=== PATIENT | male | born 1950 | race Caucasian/White ===

== ENCOUNTER 2016-09-12 07:14 | Observation (INO) | payer OTHER ==
[~2016-09-12] VITALS: Ht 188 cm; Wt 98.0 kg
[~2016-09-12 07:14] MED LIST: ALUMSUS2 PO; ASCO250C17 PO; BISM262S7 PO; LISI-461 PO; MULT-506 PO; PARO1TAB27 PO
[2016-09-12 07:22] VITALS: BP 150/67; PULSE 35; TEMP 36.5; O2SAT 97; BMI 28.0
[2016-09-12] MEDS ORDERED: CYAN500S5 SL (07:46)
[2016-09-12] MEDS ORDERED: ASPI81TA28 PO (07:46)
[2016-09-12] MEDS ORDERED: OMEG10007 PO (07:46)
[2016-09-12] MEDS ORDERED: METO25TA3 PO (07:46)
[2016-09-12] MEDS ORDERED: DICY20TA35 PO (07:46)
[2016-09-12] MEDS ORDERED: PRLSR20 PO (07:46)
[2016-09-12] MEDS ORDERED: NiCARDipine HCL INJ 2.5 MG/ML 10 ML AMP ONE (07:54)
[2016-09-12] MEDS ORDERED: HEPARIN SOD (PORCINE) 1000 UNIT/ML 10 ML VIAL ONE (07:54)
[2016-09-12] MEDS ORDERED: MIDAZOLAM HCL 1 MG/ML 2ML VIAL ONE (07:55)
[2016-09-12] MEDS ORDERED: NITROGLYCERIN/D5W 100MCG/ML 20ML SYR ONE (07:55)
[2016-09-12] MEDS ORDERED: FENTANYL CITRATE INJ 50 MCG/1 ML 2 ML VIAL ONE (07:55)
[2016-09-12] MEDS ORDERED: SODIUM CHLORIDE 0.9% 1000ML 1,000 ML IV SCH ×2 (09:34)
[2016-09-12] MEDS ORDERED: SODIUM CHLORIDE 0.9% 1000ML 250 ML IV PRN (09:34)
--- NOTE | 2016-09-12 09:34 | History & Physical Bridge Note ---
H&P Re-Evaluation Bridge Note: I have examined the patient, reviewed the History & Physical and in the interval since the performance of the History & Physical I have noted the following changes of clinical significance: No changes noted
--- NOTE | 2016-09-12 09:43 | Cardiac Catheterization ---
Procedure Note Procedure Date Sep 12, 2016. Pre-Procedure Diagnosis Angina, Positive Stress Test AUC Score 7 Post-Procedure Diagnosis Severe CAD, Normal LV Systolic Function, Normal Intracardiac Pressures Procedure(s) Performed Coronary Angiography, Left Heart Cath, LV Angiography Chief Power Dispatcher Dr. Orellana Army Manager(s) None Estimated Blood Loss None Medication(s) Lidocaine 1% Summary of Findings Severe CAD including left main trunk. Hemodynamics Rest Ao: 114/65 Final Ao: 153/75 LV: 151/16 Recommendations CABG Specimens None Radiation Exposure (mGy) 1635 Contrast (mls) 131 Fluids (cc crystalloids) 60 Procedural Complication(s) None Disposition Production Statistical Clerk Holding/Recovery ACC Data Cardiac Status Clinical evaluation leading to the procedure CAD Presntation: Stable angina, Positive Stress Test Anginal Classification: CCS II Heart Failure: No Cardiogenic Shock w/in 24Hrs: No Cardiac Arrest w/in 24Hrs: No Imaging studies past 6 months: Yes Stress studies past 6 months: Yes Stress Echocardiogram: Yes - Positive Coronary Anatomy Dominant: Right Left Main (% Stenosis): Distal (90) LAD (% Stenosis): Ostial (90) RCA (% Stenosis): Distal (90) Ramus (% Stenosis): Proximal (90) Left Ventricular Angiography EF (%): 60 Mitral Regurgitation: None Diagnostic Physician's Name: Claude Orellana, DO Status: Elective Closure Device Percutaneous Entry Location: Radial Closure Device: Radial Band Recommendations: CABG
[2016-09-12] MEDS ORDERED: ONDANSETRON INJ 2 MG/ML 2 ML VIAL IV PRN ×2 (09:45→16:45)
[2016-09-12] MEDS ORDERED: ACETAMINOPHEN 325 MG TAB PO PRN ×2 (09:45→16:45)
[2016-09-12] MEDS ORDERED: DC ALL ANTICOAGULANTS ONE (09:45)
[2016-09-12] MEDS ORDERED: ATROPINE SULFATE 0.1 MG/ML 5ML SYR IV PRN (09:45)
--- NOTE | 2016-09-12 09:46 | Discharge Instructions ---
Discharge Instructions Procedure Procedure Date: Sep 12, 2016. Reason for Visit: Abnormal Stress Test. Discharge Discharge Date: Sep 12, 2016. Discharge Diagnosis: CAD Last Recorded Wt (Kilograms): 98 Anesthesia Post Anesthesia Instructions: If you have had General Anesthesia or IV Sedation: * Do not drive today. * Resume driving when surgeon permits. * Do not make important decisions or sign legal documents today. * Call surgeon for: 1. Temperature elevations greater than 101 degrees F. 2. Uncontrollable pain. 3. Excessive bleeding. 4. Persistent nausea and vomiting. 5. Medication intolerance (nausea, vomiting or rash). * For nausea and vomiting use only clear liquids such as: tea, soda, bouillon until nausea subsides, then gradually increase diet as tolerated. * If you have any concerns or questions, call your surgeon's office. If physician is unavailable and it is an emergency, call 911 or go to the nearest emergency room. Instructions Activity Recommendations: limitations Recommended Home Diet: resume previous diet Allergies: Coded Allergies: Ciprofloxacin (Verified Allergy, Severe, RASH, 02/19/16) Sulfa Antibiotics (Verified Allergy, Unknown, unk, 02/19/16) Provider Instructions ACTIVITY RECOMMENDATIONS: Excess manipulation of the wrist should be avoided for the next 24-48 hours. * No lifting over 2 pounds (approximately a 1/2 gallon of milk) with the utilized arm for 24 hours. * No strenuous activity such as bowling or tennis for 3 days. * Keep the site of the procedure covered with a bandage for 24 hours. *You may shower the day after the procedure. Do not take a tub bath or submerge the puncture site in water for the next 3 days. *Do not operate any motorized equipment for 3 days. SPECIAL CARE INSTRUCTIONS: The site may be slightly bruised and sore following your procedure. Should any of the following occur, contact the Dr. who performed your procedure. 1. Redness/inflammation, swelling, chills, or fever, or colored drainage at procedure site within 3-7 days after your procedure. 2. Coldness, discoloration, ongoing numbness, severe pain, or swelling. Expect mild tingling of hand and tenderness at the puncture site for up to three days. If this persists beyond three days, or other symptoms develop, notify the Dr. who performed your procedure. BLEEDING: If the procedure site on your wrist begins to bleed, do not panic 1. Place 1 or 2 fingers firmly just slightly above the insertion site to stop the bleeding. You may be able to feel your pulse as you hold pressure. 2. Lift your finger after 5 minutes to see if the bleeding has stopped. 3. Once the bleeding has stopped, gently wipe the wrist area clean with a bandage. * If the bleeding from your wrist does not stop after 10 minutes, or if there is a large amount of bleeding or spurting, call 911 (do not drive yourself to the hospital). SKIN IRRITATION: * You may experience some redness and/or swelling in the area where radiation was administered. If any skin irritation occurs, please contact your family physician. FOLLOW UP VISIT: Keep any scheduled doctor appointments. Follow Up Karen Valentino Recommendations: Call your doctor if: * Temperature above 101 degrees * Pain not relieved by pain medicine ordered * There is increased drainage or redness from any incision * You have any unanswered questions or concerns. Your Doctors Instructions noted above were prepared by provider Claude Orellana. Patient Signature Section: Patient Instructions Signature Page Raj Cintron Patient (or Guardian) Signature/Date: I have read and understand the instructions given to me by my caregivers. Caregiver/RN/Doctor Signature/Date: The above-named patient and/or guardian has received patient instructions on this date. + Original Patient Signature Page (only) stays with chart. Please make copy for patient.
[2016-09-12 16:30] VITALS: BP 136/72; PULSE 41; TEMP 36.4; O2SAT 95
[2016-09-12] MEDS ORDERED: ZOLPIDEM TARTRATE 5 MG TAB PO PRN ×2 (16:45)
[2016-09-12] MEDS ORDERED: NITROGLYCERIN 0.4 MG SL PER TAB CHARGE SL PRN (16:45)
[2016-09-12] MEDS ORDERED: POLYETHYLENE (MIRALAX) 17 GM PACK PO PRN (16:45)
[2016-09-12] MEDS ORDERED: MAGNESIUM HYDROXIDE SUSP 30 ML UDC PO PRN (16:45)
[2016-09-12] MEDS ORDERED: ALUMINUM/MAGNESIUM/SIMETH (MAALOX MAX) 30 ML UDC PO PRN (16:45)
[2016-09-12] MEDS ORDERED: DICYCLOMINE HCL 20 MG TAB PO PRN (17:00)
[2016-09-12 17:10] VITALS: BP 136/72; PULSE 41; TEMP 36.4; Ht 188 cm; Wt 98.0 kg
[2016-09-12 17:25] VITALS: O2SAT 95
[2016-09-12 17:42] VITALS: BP 136/72; PULSE 41; TEMP 36.4; O2SAT 95
[2016-09-12] MEDS ORDERED: IV FLUIDS COMPLETED PRN (18:45)
[2016-09-12 20:01] VITALS: BP 116/70; PULSE 45; TEMP 36.9; O2SAT 95
[2016-09-12] MEDS ORDERED: LISINOPRIL 10 MG TAB PO SCH (21:00)
[2016-09-13] MEDS ORDERED: LISINOPRIL 10 MG TAB PO SCH (09:00)
[2016-09-13] MEDS ORDERED: PAROXETINE 20 MG TAB PO SCH ×2 (09:00)
[2016-09-13] MEDS ORDERED: PANTOprazole SOD 40 MG TAB PO PRN (09:00)
[2016-09-13] MEDS ORDERED: ASPIRIN 81 MG ECTAB PO SCH ×2 (09:00)
== END 2016-09-12 21:20 | disposition short-term general hospital (02) ==
LOC: C.CATH 07:14 → C.2T 16:07 → ENRESERV 16:11
PROVIDERS: ADMIT Internal Medicine Interventional Cardiology; ATTEND Internal Medicine Interventional Cardiology
DX: I25.119 Atherosclerotic heart disease of native coronary artery with unspecified angina pectoris (principal)

== ENCOUNTER 2016-10-19 20:33 | Emergency (ER) | payer OTHER ==
[~2016-10-19] VITALS: Ht 185.4 cm; Wt 91.5 kg
[~2016-10-19 20:33] MED LIST changes: -ALUMSUS2 PO; +ASPI81TA28 PO; -BISM262S7 PO; +CYAN500S5 SL; +DICY20TA35 PO; +METO25TA3 PO; +OMEG10007 PO; +PRLSR20 PO
[2016-10-19 20:38] VITALS: TEMP 36.7; Ht 185.4 cm; Wt 91.5 kg
[2016-10-19] MEDS ORDERED: LSN25 PO (21:28)
[2016-10-19] MEDS ORDERED: CLOP1TAB15 PO (21:29)
[2016-10-19] MEDS ORDERED: ATOR-26 PO (21:29)
[2016-10-19] MEDS ORDERED: TRAM-10 PO (21:29)
[2016-10-19] MEDS ORDERED: SPIR25TA PO (21:29)
[2016-10-19] MEDS ORDERED: FRS/40 PO (21:29)
[2016-10-19 22:07] LABS: BASO % 1.1 %; BASO ABS # 0.08 K/uL (0-0.2); COMPLETE YES; EOS % 5.2 %; HEMATOCRIT 40.4 % (42-52); IG% 0.3 %; LYMPH % 12.2 %; LYMPH ABS # 0.92 K/uL (1.2-3.4); MEAN CELL VOLUME 94.2 fL (80-100); MEAN CORPUSCULAR HGB CONC 32.9 g/dl (32-36); MEAN PLATELET VOLUME 8.8 fL (7.4-10.4); MONO % 8.1 %; NEUT % 73.1 %; PLATELET COUNT 222 K/uL (130-400); RED BLOOD COUNT 4.29 M/uL (4.7-6.1); WHITE BLOOD COUNT 7.57 K/uL (4.8-10.8)
[2016-10-19 22:17] LABS: INR 1.1 (0.9-1.1); PROTHROMBIN TIME (PATIENT) 11.3 SECONDS (9.0-12.0)
[2016-10-19 22:23] LABS: BUN/CREATININE RATIO 19.6 (10-20); C-REACTIVE PROTEIN 0.5 mg/dl (0-0.29); CALCIUM 9.1 mg/dl (8.5-10.1); CREATININE 1.3 mg/dl (0.60-1.40)
[2016-10-19 23:30] VITALS: BP 119/80; PULSE 80; O2SAT 96
--- NOTE | 2016-10-20 | EMERGENCY ROOM VISIT NOTE ---
History First contact with patient: 21:31 Chief Complaint: LEG PAIN,LEG INJURY Stated Complaint: POST CARDIAC BYPASS SURG-ANKLE SWELLING, RASH History of Present Illness The patient is a 66 year old male who presents to the Emergency Room with complaints of a rash to both of his legs. The patient states that he noticed the rash today while changing his clothes. He states it is not itchy or painful. The patient states that he had a 4 vessel CABG 5 weeks ago at [facility] in [place]. The patient stayed in the hospital there for 6 days, then was sent to [facility] for one week. He states that since being discharged a few weeks ago, he has been doing well. He reports some fatigue, but was told this would be normal. He does feel he is slightly more fatigued than normal today. The patient denies any new environmental exposures. He does state that he was started on lisinopril, but he has taken this in the past without issues. The patient denies any chest pain, shortness of breath, significant leg swelling, or fevers. Review of Systems A complete 10 point review of systems was reviewed with the patient with pertinent positives and negatives as per history of present illness. All else were negative. Past Medical/Surgical History Medical Problems: (1) Anxiety (2) CAD (coronary artery disease) (3) Depression (4) HTN (hypertension) Family History FH: COPD (chronic obstructive pulmonary disease) Hypertension Social History Smoking Status: Former Smoker Drug Use: none Marital Status: single Housing Status: lives alone Occupation Status: employed Current/Historical Medications Scheduled Aspirin (Aspirin Ec), 81 MG PO DAILY Atorvastatin (Lipitor), 80 MG PO QPM Clopidogrel (Plavix), 75 MG PO QAM Furosemide (Lasix), 40 MG PO QAM Lisinopril (Lisinopril), 2.5 MG PO DAILY Paroxetine (Paxil), 20 MG PO DAILY Spironolactone (Aldactone), 12.5 MG PO DAILY Scheduled PRN Dicyclomine Hcl (Bentyl), 1 TAB PO QID PRN for IBS Tramadol (Ultram), 50 MG PO Q8H PRN for Pain Physical Exam Vital Signs Date Time Temp Pulse Resp B/P (MAP) Pulse Ox O2 Delivery O2 Flow Rate FiO2 10/19/16 23:30 80 18 119/80 96 Room Air 10/19/16 20:38 36.7 87 18 117/87 97 Room Air Physical Exam VITALS: Vitals are noted on the nurse's note and reviewed by myself. Vital signs stable. GENERAL: This is a 66-year-old male, in no acute distress, nondiaphoretic, well- developed well-nourished. SKIN: There are multiple scattered nonblanching erythematous lesions over bilateral lower legs extending up past the knees. These are consistent with petechiae. There are well-healing incisions to bilateral medial lower legs. There is a well-healing mid sternal incision. HEENT: Normocephalic. PERRLA. EOMI. Mucous membranes moist. No petechiae of the posterior pharynx. HEART: Regular rate and rhythm without murmurs gallops or rubs. LUNGS: Clear to auscultation bilaterally without wheezes, rales or rhonchi. EXTREMITIES: No leg swelling. NEURO: Patient was alert and oriented to person place and time. Medical Decision & Procedures Laboratory Results 10/19/16 21:55 Red Blood Count 4.29, Mean Corpuscular Volume 94.2, Mean Corpuscular Hemoglobin 31.0, Mean Corpuscular Hemoglobin Concent 32.9, Mean Platelet Volume 8.8, Neutrophils (%) (Auto) 73.1, Lymphocytes (%) (Auto) 12.2, Monocytes (%) (Auto) 8.1, Eosinophils (%) (Auto) 5.2, Basophils (%) (Auto) 1.1, Neutrophils # (Auto) 5.55, Lymphocytes # (Auto) 0.92, Monocytes # (Auto) 0.61, Eosinophils # (Auto) 0.39, Basophils # (Auto) 0.08 10/19/16 21:55 Test 10/19/16 21:55 White Blood Count 7.57 K/uL (4.8-10.8) Red Blood Count 4.29 M/uL (4.7-6.1) Hemoglobin 13.3 g/dL (14.0-18.0) Hematocrit 40.4 % (42-52) Mean Corpuscular Volume 94.2 fL (80-100) Mean Corpuscular Hemoglobin 31.0 pg (25-34) Mean Corpuscular Hemoglobin Concent 32.9 g/dl (32-36) Platelet Count 222 K/uL (130-400) Mean Platelet Volume 8.8 fL (7.4-10.4) Neutrophils (%) (Auto) 73.1 % Lymphocytes (%) (Auto) 12.2 % Monocytes (%) (Auto) 8.1 % Eosinophils (%) (Auto) 5.2 % Basophils (%) (Auto) 1.1 % Neutrophils # (Auto) 5.55 K/uL (1.4-6.5) Lymphocytes # (Auto) 0.92 K/uL (1.2-3.4) Monocytes # (Auto) 0.61 K/uL (0.11-0.59) Eosinophils # (Auto) 0.39 K/uL (0-0.5) Basophils # (Auto) 0.08 K/uL (0-0.2) RDW Standard Deviation 48.3 fL (36.4-46.3) RDW Coefficient of Variation 14.1 % (11.5-14.5) Immature Granulocyte % (Auto) 0.3 % Immature Granulocyte # (Auto) 0.02 K/uL (0.00-0.02) Erythrocyte Sedimentation Rate 8 mm/hr (0-14) Prothrombin Time 11.3 SECONDS (9.0-12.0) Prothromb Time International Ratio 1.1 (0.9-1.1) Activated Partial Thromboplast Time 27.0 SECONDS (21.0-31.0) Partial Thromboplastin Ratio 1.0 Anion Gap 3.0 mmol/L (3-11) Est Creatinine Clear Calc Drug Dose 63.2 ml/min Estimated GFR () 65.9 Estimated GFR (Non- 56.9 BUN/Creatinine Ratio 19.6 (10-20) Calcium Level 9.1 mg/dl (8.5-10.1) Total Bilirubin 0.9 mg/dl (0.2-1) Direct Bilirubin 0.2 mg/dl (0-0.2) Aspartate Amino Transf (AST/SGOT) 20 U/L (15-37) Alanine Aminotransferase (ALT/SGPT) 38 U/L (12-78) Alkaline Phosphatase 94 U/L (45-117) C-Reactive Protein 0.50 mg/dl (0-0.29) Total Protein 7.1 gm/dl (6.4-8.2) Albumin 3.9 gm/dl (3.4-5.0) Medical Decision Differential diagnosis includes thrombocytopenia, medication reaction, contact dermatitis, ITP, HSP, Dawn-Vaughn syndrome, among others. The patient is a 66-year-old male who presents today complaining of a rash to bilateral lower legs. Exam reveals petechiae to both legs. The patient's platelet count was within normal limits. Inflammatory markers were not elevated. Kidney function was within normal limits. Patient is not anemic. The case was discussed with the patient's surgeon, Dr. Gonzalez in [place]. He felt that this may be due to the Plavix and recommended stopping the Plavix and following up with them in the office next week. This was discussed with the patient, who is happy with this plan of care. He is afebrile and there is no evidence of cellulitis on exam. The patient was informed that he may return here if he has any worsening or new/concerning symptoms. The patient was independently evaluated by Dr. Martinez, ED attending physician, who agreed with my assessment and treatment plan. Based on the patient's presentation and work up, I feel the patient is stable for outpatient treatment. The patient was educated to return to the emergency department for any worsening of their current condition or new/concerning symptoms. He will follow up with his PCP and surgeon. Medication Reconcilliation Current Medication List: was personally reviewed by me Blood Pressure Screening Patient's blood pressure: Normal blood pressure Impression Primary Impression: Petechial rash Departure Information Dispostion Home / Self-Care Condition GOOD Referrals Lance Burr M.D. (PCP) Patient Instructions My [facility] Additional Instructions Stop the Plavix. Follow up with Dr. Gonzalez or one of the members of his group next week. Call Dr. Burr's office tomorrow to schedule follow up (preferably for Sunday). Return to the emergency department with any worsening redness, worsening swelling, fevers or any other new/concerning symptoms.
--- NOTE | 2016-10-20 00:37 | EMERGENCY ROOM VISIT NOTE ---
ED Visit Note First contact with patient: 21:31 I have personally evaluated this patient examined her and reviewed the pertinent labs and data. I have discussed the case with Pat Garcia, the physician general assistant and agree with the plan. Please refer to the PA note. This patient comes in after having a rash on his legs. He is status post CABG. he is doing well. He has no chest pain or shortness of breath. On my exam, his incision is healing well. He appears in no distress. He has petechiae in his legs. No cellulitis. He is neurologically and neurovascularly intact and has no complaints. His blood work was unremarkable. He has normal platelets. He is afebrile. He has nothing to suggest infection. We have discussed the case with his cardiothoracic surgeon who wants to hold his Plavix as he said this could be responsible for this and they will follow-up with him in the office. The patient was encouraged to return ER if symptoms worsen in anyway.
== END 2016-10-20 | disposition home or self-care (01) ==
LOC: C.EDB 20:36 → C.EDC 10-20
DX: R23.3 Spontaneous ecchymoses (principal); I10 Essential (primary) hypertension; I25.10 Atherosclerotic heart disease of native coronary artery without angina pectoris; F32.9 Major depressive disorder, single episode, unspecified; F41.9 Anxiety disorder, unspecified; Z95.1 Presence of aortocoronary bypass graft; Z79.82 Long term (current) use of aspirin; Z79.899 Other long term (current) drug therapy; Z87.891 Personal history of nicotine dependence; Z82.49 Family history of ischemic heart disease and other diseases of the circulatory system

== ENCOUNTER 2017-01-03 11:18 | Observation (INO) | payer OTHER ==
[2017-01-03] VITALS (28 sets, daily range): BP systolic 93–110; BP diastolic 60–78; PULSE 49–79; TEMP 36.3–36.9; O2SAT 95–100; Ht 185.4 cm; Wt 103.1 kg
[~2017-01-03] VITALS: Ht 185.4 cm; Wt 103.1 kg
[~2017-01-03 11:18] MED LIST changes: -ASCO250C17 PO; +ATOR-26 PO; +CEFAZOLIN 1000MG/55 ML D5W 55 ML IV SCH; +CEFAZOLIN 2000 MG/60 ML D5W 60 ML IV SCH; +CLOP1TAB15 PO; -CYAN500S5 SL; +FRS/40 PO; +LACTATED RINGER'S 1000ML IV SCH; -LISI-461 PO; +LSN25 PO; -METO25TA3 PO; -MULT-506 PO; -OMEG10007 PO; -PRLSR20 PO; +SPIR25TA PO; +TRAM-10 PO
--- NOTE | 2017-01-03 11:38 | Procedure Note ---
Pre-Mod Sedation Assessment General Date of Moderate Sedation: Jan 03, 2017. Review Cardiovascular: regular rate, rhythm, no murmur, + bradycardia Abdomen: soft Lungs: lungs clear Airway Class: II Pre-Sedation Airway Assessment Short Thick Neck: No Hx of Sleep Apnea: No Smoking Status: Former Smoker Mallampati Classification: Class II ASA Classification: Class II Procedure Planning Contraindications-for Mod Sed: None Yes Notes The planned sedation has been discussed with the patient and consent obtained. I have identified the patient, determined the appropriateness of sedation and have assessed the patient immediately prior to the procedure. All medicine(s) and interventions are by my order.
[2017-01-03] MEDS ORDERED: METO25TA3 PO (11:47)
[2017-01-03] MEDS ORDERED: GABA-113 PO (11:48)
[2017-01-03] MEDS ORDERED: BUPIVACAINE 0.5 % 5 MG/1 ML MPF 30ML VIAL ONE (12:23)
[2017-01-03] MEDS ORDERED: LIDOCAINE HCL 1% 20 ML VIAL ONE (12:23)
[2017-01-03] MEDS ORDERED: BACITRACIN 50000 UNIT VIAL ONE (12:23)
[2017-01-03] MEDS ORDERED: FENTANYL CITRATE INJ 50 MCG/1 ML 2 ML VIAL ONE (12:36)
[2017-01-03] MEDS ORDERED: MIDAZOLAM HCL 5 MG/ML 1 ML VIAL ONE (12:36)
[2017-01-03] MEDS ORDERED: ONDANSETRON INJ 2 MG/ML 2 ML VIAL ONE (13:27)
[2017-01-03] MEDS ORDERED: ACETAMINOPHEN 325 MG TAB PO PRN (14:30)
--- NOTE | 2017-01-03 14:33 | Procedure Note ---
Post-Mod Sedation Assessment General Date of Moderate Sedation Jan 03, 2017. Vital Signs: Vital Signs Past 12 Hours Date Time Temp Pulse Resp B/P (MAP) Pulse Ox O2 Delivery O2 Flow Rate FiO2 01/03/17 14:20 65 16 99/70 (80) Room Air 01/03/17 14:15 65 16 106/73 (84) 100 Nasal Cannula 4.0 01/03/17 14:10 65 16 100/75 (83) 100 Nasal Cannula 4.0 01/03/17 14:05 68 16 106/75 (85) 100 Nasal Cannula 4.0 01/03/17 14:00 69 16 110/66 (81) 100 Nasal Cannula 4.0 01/03/17 13:55 69 16 106/74 (85) 100 Nasal Cannula 4.0 01/03/17 13:50 69 16 96/68 (77) 100 Nasal Cannula 4.0 01/03/17 13:45 79 16 98/70 (79) 99 Nasal Cannula 4.0 01/03/17 13:40 68 16 100/60 (73) 98 Nasal Cannula 4.0 01/03/17 13:35 71 16 96/63 (74) 99 Nasal Cannula 4.0 01/03/17 13:30 68 16 95/63 (74) 98 Nasal Cannula 4.0 01/03/17 13:25 68 18 97/68 (78) 99 Nasal Cannula 4.0 01/03/17 13:20 68 18 93/65 (74) 99 Nasal Cannula 4.0 01/03/17 13:15 68 18 94/66 (75) 99 Nasal Cannula 4.0 01/03/17 13:10 68 18 101/68 (79) 100 Nasal Cannula 4.0 01/03/17 13:05 72 18 109/75 (86) 98 Nasal Cannula 4.0 01/03/17 13:00 73 18 105/70 (82) 98 Room Air 01/03/17 11:31 36.9 49 18 98/75 (83) 98 Room Air Review - Discharge Criteria Vital Signs Stable: Yes Returned to Baseline Mental St: Yes Nausea Absent/Minimal: Yes Pain/Discomfort/Absent/Minimal: Yes Normal/Baseline Respirations: Yes Active Bleeding?: No Pt Received D/C Instructions: N/A Prescriptions Given: None Specific Proced. D/C Criteria Distal Pulses Present (Cardiac: N/A Groin site assessed-Card Cath: N/A Voided Prior To Discharge: N/A Discharged Patients Adult Escort/Transportation: N/A
--- NOTE | 2017-01-03 14:34 | [facility] Post Operative Brief Note ---
Immediate Operative Summary Operative Date Jan 03, 2017. Pre-Operative Diagnosis ischemic cardiomyopathy & sinus bradycardia Post-Operative Diagnosis ischemic cardiomyopathy & sinus bradycardia Procedure(s) Performed Dual Chamber ICD right responsive under fluroscopic guidance Surgeon Dr. Yanna Neumann Baller Tender Surgeon(s) none Estimated Blood Loss 15mL Findings none Fluids (cc crystalloids) 450 Specimens none per surgeon Drains none Anesthesia 5mg versed and 125mcg fentanyl Complication(s) None Disposition PCU
--- NOTE | 2017-01-03 14:36 | Discharge Instructions ---
Discharge Instructions Date of Service Jan 04, 2017. Admission Reason for Admission: Ischemic Cardiomyopathy Discharge Discharge Diagnosis / Problem: icm and sb Discharge Goals Goal(s): Improve function Activity Recommendations Activity Limitations: as noted below Lifting Limitations: no more than 10 pounds (do not lift the left elbow over the left shoulder for 1 month; do not lift more than 10 pounds with the left arm for 2 weeks) Shower/Bathe: tomorrow . Instructions / Follow-Up Instructions / Follow-Up ACTIVITY RECOMMENDATIONS: * Do not raise affected arm over head for 4 weeks. SPECIAL CARE INSTRUCTIONS: * If bleeding occurs, apply direct pressure to area for 5 minutes. * Call your doctor if you have severe pain, fever, drainage or bleeding at site. * Keep dressing on and dry for 24 hours. * Keep any scheduled doctor's appointment. * Implant Card - hand held device with website information given. SKIN IRRITATION: * You may experience some redness and/or swelling in the area where radiation was administered. If any skin irritation occurs, please contact your family physician. FOLLOW UP VISIT: Keep any scheduled doctor appointments. Current Hospital Diet Patient's current hospital diet: AHA Diet (Heart Healthy), Low Sodium Diet (2gm Na) Discharge Diet Recommended Diet: AHA Diet (Heart Healthy), Low Sodium Diet (2gm Na) Procedures Procedures Performed: Dual Chamber ICD right responsive under fluroscopic guidance Pending Studies Studies pending at discharge: no Medical Emergencies . Who to Call and When: Medical Emergencies: If at any time you feel your situation is an emergency, please call 911 immediately. . Non-Emergent Contact Non-Emergency issues call your: Agriscience Instructor . . "Provider Documentation" section prepared by Yanna Neumann. . VTE Core Measure Inpt VTE Proph given/why not?: Joel Lawrence
--- NOTE | 2017-01-03 14:39 | Discharge Summary ---
Discharge Summary Date of Service Jan 03, 2017. Discharge Summary Admission Date: 01/02/2017 Discharge Date: Jan 04, 2017 Discharge Disposition: Home Principal Diagnosis: ICM sinus bradycardia Secondary Diagnoses/Problems: cad h/o cabg htn hld Procedures: dual chamber icd Medication Reconciliation Continued Medications: Aspirin (Aspirin Ec) 81 Mg Tab 81 MG PO DAILY Atorvastatin (Lipitor) 80 Mg Tab 80 MG PO QPM, TAB Furosemide (Lasix) 40 Mg Tab 40 MG PO QAM, TAB Gabapentin (Neurontin) 300 Mg Cap 300 MG PO, CAP Lisinopril (Lisinopril) 2.5 Mg Tab 2.5 MG PO DAILY Metoprolol Succ (Toprol Xl) (Toprol-Xl) 25 Mg Tabcr 25 MG PO DAILY, #30 TAB Paroxetine (Paxil) 20 Mg Tab 20 MG PO DAILY, TAB Spironolactone (Aldactone) 25 Mg Tab 12.5 MG PO DAILY, TAB Admission Information Physical Exam (per Admitting): aaox3, NAD Supple, No JVD Nrl S1/S2, no murmur CTA b/l no w/r/r soft nt/nd no edema b/l LE no focal deficits skin intact Hospital Course Pt admitted for elective ICD due to ICM and SB. Underwent procedure without any complications. Monitored overnight and discharged home in stable condition. ADDENDUM, 01/04/17, Dr Pandey: Patient seen in post device follow up in coverage of Dr Neumann. Patient known to the undersigned as I am his primary general oiler bander. Patient feels well with exception of mild post procedure site pain. Assessment and Plan Telemetry, stable SR. Device check: normal device function, Atrial pacing 48% of time. CXR: appropriate lead position, no PTX Impression: 1. stable s/p insertion of dual chamber AICD for ischemic CM, DE, primary prevention of SCD. 2. chronic back pain, stable Plan: Continue DAY CARE ATTENDANT medications, short course of percocet for procedure related pain. [facility] site checked, no suspicious activity noted. Mely Pandey DO Total time spent on discharge = 30 minutes This includes examination of the patient, discharge planning, medication reconciliation, and communication with other providers. Discharge Instructions ACTIVITY RECOMMENDATIONS: * Do not raise affected arm over head for 4 weeks. SPECIAL CARE INSTRUCTIONS: * If bleeding occurs, apply direct pressure to area for 5 minutes. * Call your doctor if you have severe pain, fever, drainage or bleeding at site. * Keep dry for 24 hours. * Keep any scheduled doctor's appointment. * Implant Card - hand held device with website information given. SKIN IRRITATION: * You may experience some redness and/or swelling in the area where radiation was administered. If any skin irritation occurs, please contact your family physician. FOLLOW UP VISIT: Keep any scheduled doctor appointments.
[2017-01-03] MEDS ORDERED: IV FLUIDS COMPLETED PRN (15:00)
--- NOTE | 2017-01-03 15:02 | DIAGNOSTIC IMAGING REPORT ---
CHEST 1 VIEW FRONTAL CLINICAL HISTORY: Dual lead pacer. COMPARISON STUDY: Chest radiograph and chest CT February 19, 2016. Fluoroscopy time: 451 seconds. FINDINGS: 4 fluoroscopic images demonstrate placement of a left subclavian pacer/AICD. Lead tips project over the expected region the right atrial appendage and right ventricle. IMPRESSION: Fluoroscopic images demonstrate placement of a dual lead left pacer/AICD. Electronically signed by: Pepe Sanchez M.D. 01/03/2017 3:01 PM Dictated Date/Time: 01/03/2017 2:59 PM
[2017-01-03] MEDS: OXYCODONE/ACETAMINOPHEN 5-325 TAB PO PRN ×2 (15:47→22:05)
--- NOTE | 2017-01-03 15:54 | OPERATIVE REPORT ---
DATE OF OPERATION: 01/03/2017 PREOPERATIVE DIAGNOSES: Sinus bradycardia and ischemic cardiomyopathy. POSTOPERATIVE DIAGNOSES: Same. PROCEDURE: Dual chamber rate responsive implantable cardiac defibrillator under fluoroscopic guidance. SURGEON: Yanna Neumann DO SPRAY PAINTER HELPER: None. ANESTHESIA: Monitored conscious sedation was administered under my supervision by Nannette Stapleton, start time 1310 and end time 1420, a total of 5 mg of Versed and 125 mcg of fentanyl. INTRAVENOUS FLUIDS: 450 mL. ESTIMATED BLOOD LOSS: 15 mL. COMPLICATIONS: None. CONDITION: Stable. URINE OUTPUT: Not applicable. SPECIMENS: None. FINDINGS: See below. DRAINS: None. INDICATIONS FOR PROCEDURE: This is a 66-year-old gentleman with a past medical history for sinus bradycardia, coronary artery disease in which he underwent a coronary artery bypass grafting in 12/15/2016 with SVG to LAD, OM and RCA and right PDA. Unfortunately immediately postop, he ended up having a ST elevation OR. Once that was further looked into after surgery a few months later where an echocardiogram revealed that his EF went from normal to 25-29% and a repeat cardiac catheterization revealed that right at the touchdown of the SVG to LAD lesion, it was occluded and medical management was recommended and he was placed on a LifeVest. He also carries a past medical history of hypertension and hyperlipidemia. Due to the ischemic cardiomyopathy and sinus bradycardia, he was recommended implantable cardiac defibrillator. CONSENT: Consent was obtained prior to the patient going into the operating room. The patient was informed of risks, benefits and alternatives to the procedure. Risks include but not limited to sudden cardiac ; cardiac arrhythmias; cerebrovascular accident; myocardial infarction; injury to the blood vessels, chamber of the heart, lungs, bleeding and infection. The patient understood these risks and agreed to the procedure as planned. Informed consent was obtained. DESCRIPTION OF THE PROCEDURE: The patient was brought into the operating room in a fasting state. He was connected to continuous senior associate. A timeout was performed to ensure patient's identity and procedure correctly. The patient was prepped and draped over the left infraclavicular space in normal surgical standard fashion. Moderate conscious sedation was given throughout the procedure for patient's comfort level. [place] precautions were maintained throughout the procedure. A 20 mL of 1% lidocaine, bupivacaine mixture were given in the left deltopectoral groove. Incision was made in the left deltopectoral groove. Blunt dissection was performed down to identify the cephalic vein and cephalic vein was identified and isolated using 0 silk ties. The vein was nicked with an 11 blade and a guidewire was inserted without any resistance. An 8-Indian sheath was inserted over the guidewire without any resistance. The dilator was removed and a second guidewire was inserted through the sheath to allow for retained venous access. The sheath was removed and a 9.5-Indian sheath was inserted over one of the guidewires without any resistance. The guidewire and dilator were removed. The right ventricular defibrillator lead was then advanced into the right ventricle and positioned initially into the right atrial apex area; however, there was not really great stenting, so ultimately it was a little bit up on the septum on the lower portion of the septum. There was adequate pacing and sensing thresholds and no diaphragmatic stimulation with high output pacing. The 9.5-Indian sheath was peeled away and the lead was fixated to pectoralis muscle using 0 silk suture. An 8-Indian sheath was then inserted over the retained guidewire without any resistance. The guidewire and dilator were removed. The right atrial lead was positioned into the right atrial appendage and under fluoroscopic guidance. There was adequate pacing and sensing thresholds and no diaphragmatic stimulation with high output pacing. The 8-Indian sheath was peeled away and lead was fixated to pectoralis muscle using 0 silk suture. Additional 10 mL of 1% lidocaine, bupivacaine mixture were given in the pectoralis fascia and then using blunt dissection over the pectoralis muscle within the fascia, a defibrillator pocket was created. The stay stitch using 2-[address] needle was placed around the cephalic venous site just to prevent some further back bleeding. Then with copious amounts of bacitracin saline wash, then the pocket was flushed with copious amounts of bacitracin saline wash and inspected for hemostasis. The defibrillator was then attached to the leads making sure that the pins were in appropriate position, passed the set screw and the set screws were all tightened. The defibrillator was then placed in the pocket, making sure that the leads were lying flat beneath the device. The incision was closed in a 3-layer fashion using a 2-0 Vicryl interrupted suture followed by 3-0 Vicryl interrupted suture followed by a 4-0 Monocryl running stitch. Dermabond was applied. EQUIPMENT: 1. The defibrillator generator is the Medtronic Evera MRI XTDR Shamika, [id number], serial number [id number]. 2. Right atrial lead Medtronic 5076-52 cm, serial number [id number]. 3. Right ventricular lead Medtronic 6935-62 cm, serial number [id number]. INTRAOPERATIVE TESTIN. Right atrial lead: P-wave 2.5 millivolts, impedance 542 ohms, threshold 1.1 volts at 2.3 milliamps. 2. Right ventricular lead: R-wave 6.3 millivolts, impedance 703 ohms, threshold 0.3 volts at 0.1 milliamps. FINAL MEASUREMENTS THROUGH THE DEVICE: 1. P-wave P waves 3.5 millivolts, impedance 399 ohms, threshold 0.75 volts at 0.4 milliseconds. 2. Right ventricular lead: R-wave 7 millivolts, impedance 646 ohms, threshold 0.5 volts at 0.4 milliseconds. FINAL PARAMETERS: 1. MVP-R 60/130. 2. Right atrial and right ventricular amplitude 3.5 volts, pulse width 0.4 milliseconds, sensitivity point millivolts. 3. A VT zone at 167 beats per minute with 20 detection intervals and a VF zone at 200 beats per minute with 30/40 detection intervals. IMPRESSION: Successful implantation of a dual chamber rate responsive implantable cardiac defibrillator under fluoroscopic guidance secondary to sinus bradycardia and ischemic cardiomyopathy. PLAN: Monitor patient overnight, 12-lead ECG, chest x-ray. He is not allowed to lift the left elbow over the left shoulder for 1 month. He cannot lift more than 10 pounds with the left arm for 2 weeks. He can shower tomorrow, let water run over the incision, do not scrub it. He can continue his home medications and he is to follow up with the device and wound check in 7-10 days in our [facility] office. I attest to the content of the Intraoperative Record and any orders documented therein. Any exception s are noted below.
[2017-01-03] MEDS: PAROXETINE 20 MG TAB PO SCH (20:22)
[2017-01-03] MEDS ORDERED: ATORVASTATIN 40 MG TAB PO SCH (21:00)
[2017-01-04 03:19] VITALS: BP 105/71; PULSE 64; TEMP 36.3; O2SAT 95
[2017-01-04] MEDS: OXYCODONE/ACETAMINOPHEN 5-325 TAB PO PRN ×2 (04:09→11:05)
--- NOTE | 2017-01-04 06:42 | DIAGNOSTIC IMAGING REPORT ---
CHEST 2 VIEWS ROUTINE CLINICAL HISTORY: Chest x-ray for pacemaker placement COMPARISON STUDY: 02/19/2016 FINDINGS: There is a left subclavian dual-chamber central venous pacemaker present. No pneumothorax is visualized. The electrode position is unremarkable. There is minor left basilar atelectasis/scarring. There is no failure. There is no lobar consolidation. There are no pleural effusions.[ IMPRESSION: No evidence of pneumothorax status post placement of a left subclavian dual-chamber central venous pacemaker. Electronically signed by: Chin Sims M.D. 01/04/2017 6:41 AM Dictated Date/Time: 01/04/2017 6:40 AM
[2017-01-04 07:03] VITALS: BP 113/75; PULSE 60; TEMP 36.4; O2SAT 95
[2017-01-04] MEDS ORDERED: METOPROLOL SUCC 25MG EXT REL TAB PO SCH (09:00)
[2017-01-04] MEDS ORDERED: LISINOPRIL 2.5 MG TAB PO SCH (09:00)
[2017-01-04] MEDS ORDERED: SPIRONOLACTONE 25 MG TAB PO SCH (09:00)
[2017-01-04] MEDS: GABAPENTIN 300 MG CAP PO SCH ×2 (09:00→09:34)
[2017-01-04] MEDS ORDERED: FUROSEMIDE 40 MG TAB PO SCH (09:00)
[2017-01-04] MEDS ORDERED: ASPIRIN 81 MG ECTAB PO SCH (09:00)
[2017-01-04] MEDS: PAROXETINE 20 MG TAB PO SCH (09:34)
--- NOTE | 2017-01-04 10:16 | Cardiology Follow-Up ---
Subjective General Date of Service: Jan 04, 2017. Chief Complaint: follow up AICD placement Pt evaluation today including: conversation w/ patient History of Present Illness The patient is a 66 year old male seen in post procedure cardiology follow up in coverage of Dr Neumann. Patient is well known to the undersigned as I am his primary outpatient drafter apprentice. He feels well with the exception of incision / procedure site pain prompting percocet at 4 am. Allergies Coded Allergies: Ciprofloxacin (Verified Allergy, Severe, RASH, 10/19/16) Clopidogrel (Verified Allergy, Mild, RASH, 01/03/17) Sulfa Antibiotics (Verified Allergy, Unknown, unk, 10/19/16) Social History Smoking Status: Unknown if Ever Smoked Hx Tobacco Use In Past Year?: Yes (quit August 2016) Hx Alcohol Use - Type And Amou: No Hx Substance Use - Type And Am: No Physical Exam Vital Signs Last Vital Signs Documentation Date Time Temp Pulse Resp B/P (MAP) Pulse Ox O2 Delivery O2 Flow Rate FiO2 01/04/17 08:00 Room Air 01/04/17 07:03 36.4 60 20 113/75 (88) 95 01/03/17 16:00 2.0 Physical Exam Constitutional: Level of Distress: NAD Head: normocephalic Neck: supple, trachea midline Lungs: Auscultation: breath sounds normal, no wheezing, no rales/crackles, no rhonchi Cardiovascular: Heart Auscultation: RRR, no murmurs, no rubs, no gallops Abdomen: Inspection & Palpation: soft, non-distended Extremities: no edema Neurologic: Gait & Station: pertinent finding (no focal deficits ) Additional Comments: Pocket site in left infraclavicular position: Clean dry intact. No ecchymosis, mild erythema. No drainage. No overt sign of hematoma. Assessment and Plan Assessment and Plan Telemetry, stable SR. Device check: normal device function, Atrial pacing 48% of time. CXR: appropriate lead position, no PTX Impression: 1. stable s/p insertion of dual chamber AICD for ischemic CM, [place], primary prevention of SCD. 2. chronic back pain, stable Plan: Continue INTERACTIVE PRODUCER medications, short course of percocet for procedure related pain. [facility] site checked, no suspicious activity noted. Laboratory Results Last 24 Hours Test 01/04/17 04:48 Hepatitis C Antibody Screen NEG
[2017-01-04] MEDS ORDERED: OXYC-57 PO (10:20)
[2017-01-04 10:44] VITALS: BP 113/75; PULSE 60; TEMP 36.4; O2SAT 95
== END 2017-01-04 11:15 | disposition home or self-care (01) ==
LOC: C.ACU 11:18 → C.2E 14:32
PROVIDERS: ADMIT Internal Medicine; ATTEND Internal Medicine
DX: R00.1 Bradycardia, unspecified (principal); I25.5 Ischemic cardiomyopathy; I25.10 Atherosclerotic heart disease of native coronary artery without angina pectoris; I25.2 Old myocardial infarction; I48.91 Unspecified atrial fibrillation; I10 Essential (primary) hypertension; E78.5 Hyperlipidemia, unspecified; Z95.1 Presence of aortocoronary bypass graft; E80.4 Gilbert syndrome; K58.9 Irritable bowel syndrome, unspecified; K76.0 Fatty (change of) liver, not elsewhere classified; F17.200 Nicotine dependence, unspecified, uncomplicated; F33.41 Major depressive disorder, recurrent, in partial remission; F06.4 Anxiety disorder due to known physiological condition; Z79.899 Other long term (current) drug therapy